=== PATIENT | male | born 1965 | race Caucasian/White ===

== ENCOUNTER 2023-07-21 10:22 | Outpatient (OUT) | payer BC, SELFPAY ==
[2023-07-21 10:52] LABS: Basophils Percent Auto 0.6 % (0.2-2.0); Eosinophils Absolute Auto 0.1 10^3/uL (0.0-0.7); Eosinophils Percent Auto 1.2 % (0.9-7.0); Hematocrit 47.2 % (42.0-54.0); Hemoglobin 16.2 g/dL (14.0-18.0); Immature Granulocytes Abs Auto 0.02 10^3/uL (0.00-0.03); Immature Granulocytes Pct Auto 0.3 % (0.0-0.5); Lymphocytes Absolute Auto 2.2 10^3/uL (1.2-3.8); Lymphocytes Percent Auto 30.9 % (20.5-60.0); Mean Corpuscular HGB Conc 34.3 g/dL (29.9-35.2); Mean Corpuscular Hemoglobin 30.5 pg (25.9-34.0); Mean Corpuscular Volume 88.9 fL (80.0-94.0); Mean Platelet Volume 10.5 fL (9.5-13.5); Monocytes Absolute Auto 0.5 10^3/uL (0.3-0.8); Monocytes Percent Auto 6.8 % (1.7-12.0); Neutrophils Absolute Auto 4.3 10^3/uL (1.4-6.5); Neutrophils Percent Auto 60.2 % (43.0-75.0); Platelet Count 175 10^3/uL (150-450); Red Blood Count 5.31 10^6/uL (4.70-6.10); Red Cell Distribution Width 11.9 % (11.0-15.0); White Blood Count 7.2 10^3/uL (4.0-11.0)
[2023-07-21 11:23] LABS: Alanine Aminotransferase 51 U/L (16-63); Albumin Globulin Ratio 1.2; Alkaline Phosphatase 72 U/L (46-116); Anion Gap 8.6; Aspartate Amino Transferase 30 U/L (15-37); BUN Creatinine Ratio 12.5; Bilirubin Total 0.6 mg/dL (0.2-1.0); Calcium 9.4 mg/dL (8.5-10.1); Carbon Dioxide 31.6 mmol/L (21.0-32.0); Chloride 104 mmol/L (98-107); Chol HDL Ratio 4.2; Cholesterol 187 mg/dL (<=200); Estimated GFR (African America >60 (>=60); Estimated GFR (Non-African Ame >60 (>=60); Globulin 3.4 g/dL; Glucose 93 mg/dL (74-106); HDL Cholesterol 44 mg/dL (40-60); Potassium 4.2 mmol/L (3.5-5.1); Sodium 140 mmol/L (136-145); Total Protein 7.4 g/dL (6.4-8.2); Triglycerides 196 mg/dL (<=150); VLDL CHOLESTEROL 39.2 mg/dL
[2023-07-21 11:26] LABS: Estimated Average Glucose 105 mg/dL; Glycohemoglobin A1C 5.3 % (4.5-6.2)
[2023-07-22 04:07] LABS: PSA, Free 0.34 ng/mL; Prostate Specific Ag 0.8 ng/mL (0.0-4.0)
== END 2023-07-21 10:23 | disposition home or self-care (01) ==
LOC: LAB 10:26
PROVIDERS: PCP Family Medicine; Visit Provider Family Medicine
DX: Z00.00 Encounter for general adult medical examination without abnormal findings (principal); E78.5 Hyperlipidemia, unspecified; R73.9 Hyperglycemia, unspecified; Z12.5 Encounter for screening for malignant neoplasm of prostate
CPT/HCPCS: 36415; 80053; 80061; 83036; 84153; 84154; 84436; 84443; 84481; 85025

== ENCOUNTER 2024-08-26 16:09 | Outpatient (OUT) | payer BC, SELFPAY ==
--- OUTSIDE RECORDS SUMMARY | 2024-08-26 16:15 | XMS_ITS | CCD ---
Author Organization [facility] Care Team Providers Care Toxicologist Name Role Phone DR JEFFY HAMILTON Admitting Unavailable DR JEFFY HAMILTON Attending Unavailable DR JEFFY HAMILTON Primary Care Unavailable DR JEFFY HAMILTON Consulting Unavailable Jeffy Hamilton Primary Care Physician Steve CRISTINA Attending Unavailable Steve CRISTINA Attending Unavailable Jeffy Hamilton Referring Unavailable Allergies Allergy Classification Reported Allergen(s) Allergy Type Date of Onset Reaction(s) Facility (1 source) No Known Medication Allergies; Translations: [No Known Medication Allergies] Propensity to adverse reactions (disorder) [facility] Repository Medications Current Medications Medication Drug Class(es) Dates Sig (Normalized) Sig (Original) fluticasone propionate 0.05 mg/actuat metered dose nasal spray (1 source) Corticosteroid Start: 12-13-2023 take 1 spray(s) nasal route once daily Fluticasone Propionate Active 1 SPRAY INTRANASAL Daily December 13, 2023 12:00am administer into each nostril Problems Problem Classification Problem Date Documented Date Episodic/Chronic Disorders of lipid metabolism (1 source) Hypertriglyceridemia 08-19-2023 Chronic Fever of unknown origin (1 source) Fever, unspecified; Translations: [Fever, unspecified] 12-13-2023 Episodic Other male genital disorders (1 source) Disorder of prostate; Translations: [Other specified disorders of prostate] Onset: 4 Episodic Other male genital disorders (1 source) Asymmetry of prostate 08-24-2023 Episodic Other screening for suspected conditions (not mental disorders or infectious disease) (2 sources) Encounter for screening for malignant neoplasm of prostate; Translations: [Screening for malignant neoplasm done] Onset: 2 Episodic Other upper respiratory infections (3 sources) Viral upper respiratory tract infection; Translations: [Acute upper respiratory infection, unspecified] 12-13-2023 Episodic Unclassified (1 source) Patient encounter status 08-24-2023 Results Test Name Value Interpretation Reference Range Facility No Panel InformationOrdered By: Ev Portillo on 12-13-2023 COVID Antigen (POC) [facility] Quick Strep (POC) [facility] Physician Referralon 024 Physician Referral [phone] [id number] #[id number] Normal [facility] Ambulatory Visit Summaryon 0 08-24-2023 Ambulatory Visit Summary ONESIMO COLEMAN :1965 Visit Date:08/24/2023 Ambulatory Visit Instructions Your Diagnosis Prostate asymmetry Prostate cancer screening Your Care Team Attending Physician - JONNIE FLORES, Steve Clark Primary Care Physician - Alfonso FLORES, Jeffy Referring Physician - Jeffy Hamilton MD Procedures Performed Colonoscopy, Excision of lesion of ear, Tonsillectomy. Discharge Vitals Heart Rate (Peripheral) 62 Blood Pressure 135/84 Height 173 cm Height 68 in Weight 79.5 kg Weight 174.9 lb BMI 26.56 What to do next You Need to Schedule the Following Appointments Follow Up with JONNIE FLORES, Steve Clark, URL When: Comments: 1 yr w/ PSA, SYLVAIN Where: [facility] [address], [place] [phone] Allergies No Known Medication Allergies Problems Ongoing - Any problem that you are currently receiving treatment for. Hypertriglyceridemia Prostate asymmetry Prostate cancer screening Patient Survey You may receive a survey via text or e-mail asking about your office visit. Please share your experience with us by completing your survey. We appreciate your feedback and thank you for choosing us for your care. Education Materials Prostate Cancer Screening Prostate cancer screening is testing that is done to check for the presence of prostate cancer in men. The prostate gland is a walnut-sized gland that is located below the bladder and in front of the rectum in males. The function of the prostate is to add fluid to semen during ejaculation. Prostate cancer is one of the most common types of cancer in men. Who should have prostate cancer screening? Screening recommendations vary based on age and other risk factors, as well as between the professional organizations who make the recommendations. In general, screening is recommended if: ? You are age 50 to 70 and have an average risk for prostate cancer. You should talk with your health care provider about your need for screening and how often screening should be done. Because most prostate cancers are slow growing and will not cause , screening in this age group is generally reserved for men who have a 10- to 15-year life expectancy. ? You are younger than age 50, and you have these risk factors: ? Having a father, brother, or uncle who has been diagnosed with prostate cancer. The risk is higher if your family member's cancer occurred at an early age or if you have multiple family members with prostate cancer at an early age. ? Being a male who is Black or is of Bhargav or sub-Saharan descent. In general, screening is not recommended if: ? You are younger than age 40. ? You are between the ages of 40 and 49 and you have no risk factors. ? You are 70 years of age or older. At this age, the risks that screening can cause are greater than the benefits that it may provide. If you are at high risk for prostate cancer, your health care provider may recommend that you have screenings more often or that you start screening at a younger age. How is screening for prostate cancer done? The recommended prostate cancer screening test is a blood test called the prostate-specific antigen (PSA) test. PSA is a protein that is made in the prostate. As you age, your prostate naturally produces more PSA. Abnormally high PSA levels may be caused by: ? Prostate cancer. ? An enlarged prostate that is not caused by cancer (benign prostatic hyperplasia, or BPH). This condition is very common in older men. ? A prostate gland infection (prostatitis) or urinary tract infection. ? Certain medicines such as male hormones (like testosterone) or other medicines that raise testosterone levels. A rectal exam may be done as part of prostate cancer screening to help provide information about the size of your prostate gland. When a rectal exam is performed, it should be done after the PSA level is drawn to avoid any effect on the results. Depending on the PSA results, you may need more tests, such as: ? A physical exam to check the size of your prostate gland, if not done as part of screening. ? Blood and imaging tests. ? A procedure to remove tissue samples from your prostate gland for testing (biopsy). This is the only way to know for certain if you have prostate cancer. What are the benefits of prostate cancer screening? ? Screening can help to identify cancer at an early stage, before symptoms start and when the cancer can be treated more easily. ? There is a small chance that screening may lower your risk of dying from prostate cancer. The chance is small because prostate cancer is a slow-growing cancer, and most men with prostate cancer from a different cause. What are the risks of prostate cancer screening? The main risk of prostate cancer screening is diagnosing and treating prostate cancer that would never have caused any symptoms or proble (more content not included)... Normal [facility] Patient Educationon 08-24-19 Patient Education Oncology Prostate Cancer Screening Prostate cancer screening is testing that is done to check for the presence of prostate cancer in men. The prostate gland is a walnut-sized gland that is located below the bladder and in front of the rectum in males. The function of the prostate is to add fluid to semen during ejaculation. Prostate cancer is one of the most common types of cancer in men. Who should have prostate cancer screening? Screening recommendations vary based on age and other risk factors, as well as between the professional organizations who make the recommendations. In general, screening is recommended if: ? You are age 50 to 70 and have an average risk for prostate cancer. You should talk with your health care provider about your need for screening and how often screening should be done. Because most prostate cancers are slow growing and will not cause , screening in this age group is generally reserved for men who have a 10- to 15-year life expectancy. ? You are younger than age 50, and you have these risk factors: ? Having a father, brother, or uncle who has been diagnosed with prostate cancer. The risk is higher if your family member's cancer occurred at an early age or if you have multiple family members with prostate cancer at an early age. ? Being a male who is Black or is of Bhargav or sub-Saharan descent. In general, screening is not recommended if: ? You are younger than age 40. ? You are between the ages of 40 and 49 and you have no risk factors. ? You are 70 years of age or older. At this age, the risks that screening can cause are greater than the benefits that it may provide. If you are at high risk for prostate cancer, your health care provider may recommend that you have screenings more often or that you start screening at a younger age. How is screening for prostate cancer done? The recommended prostate cancer screening test is a blood test called the prostate-specific antigen (PSA) test. PSA is a protein that is made in the prostate. As you age, your prostate naturally produces more PSA. Abnormally high PSA levels may be caused by: ? Prostate cancer. ? An enlarged prostate that is not caused by cancer (benign prostatic hyperplasia, or BPH). This condition is very common in older men. ? A prostate gland infection (prostatitis) or urinary tract infection. ? Certain medicines such as male hormones (like testosterone) or other medicines that raise testosterone levels. A rectal exam may be done as part of prostate cancer screening to help provide information about the size of your prostate gland. When a rectal exam is performed, it should be done after the PSA level is drawn to avoid any effect on the results. Depending on the PSA results, you may need more tests, such as: ? A physical exam to check the size of your prostate gland, if not done as part of screening. ? Blood and imaging tests. ? A procedure to remove tissue samples from your prostate gland for testing (biopsy). This is the only way to know for certain if you have prostate cancer. What are the benefits of prostate cancer screening? ? Screening can help to identify cancer at an early stage, before symptoms start and when the cancer can be treated more easily. ? There is a small chance that screening may lower your risk of dying from prostate cancer. The chance is small because prostate cancer is a slow-growing cancer, and most men with prostate cancer from a different cause. What are the risks of prostate cancer screening? The main risk of prostate cancer screening is diagnosing and treating prostate cancer that would never have caused any symptoms or problems. This is called overdiagnosisand overtreatment. PSA screening cannot tell you if your PSA is high due to cancer or a different cause. A prostate biopsy is the only procedure to diagnose prostate cancer. Even the results of a biopsy may not tell you if your cancer needs to be treated. Slow-growing prostate cancer may not need any treatment other than monitoring, so diagnosing and treating it may cause unnecessary stress or other side effects. Questions to ask your health care provider ? When should I start prostate cancer screening? ? What is my risk for prostate cancer? ? How often do I need screening? ? What type of screening tests do I need? ? How do I get my test results? ? What do my results mean? ? Do I need treatment? Where to find more information ? [employer] [place] [employer]: www.cancer.org ? [employer]: www.auanet.org Contact a health care provider if: ? You have difficulty urinating. ? You have pain when you urinate or ejaculate. ? You have blood in your urine or semen. ? You have pain in your back or in the area of your prostate. Summary ? Prostate cancer is a common type of cancer in men. The prostate gland is located below the bladder and in front of the rectum. This gland adds flu (more content not included)... Normal [facility] LIPID PROFILEon 12-11-2021 CHOL-HDL RATIO NORM SEE BELOW Normal [facility] Comment on above: Result Comment: 3.3 - 4.4 LOW RISK 4.4 - 7.1 AVERAGE RISK 7.1 - 11.0 MODERATE RISK >11.0 HIGH RISK Performed By: #### L IPID #### [facility] [address] [address] [address] Ruthann Evans Cholesterol [Mass/Vol] 181 mg/dL Normal <=200 Th [facility] Comment on above: Performed By: #### L IPID #### [facility] [address] [address] [address] Ruthann Evans Cholesterol in HDL [Mass/Vol] 33 mg/dL Critically low 40-60 [facility] Comment on above: Performed By: #### L IPID #### [facility] [address] [address] [address] Ruthann Evans Cholesterol in LDL [Mass/Vol] 93.2 mg/dL Normal [facility] Comment on above: Performed By: #### L IPID #### [facility] [address] [address] [address] Ruthann Evans Cholesterol.total/Nellie sterol in HDL [Mass ratio] 5.5 {ratio} Normal [facility] Comment on above: Performed By: #### L IPID #### [facility] [address] [address] [address] Ruthann Evans HDL NORMAL > or = 60 mg/dl - LOW CARDIOVASCULAR RISK <40 mg/dl - HIGH CARDIOVASCULAR RISK Normal [facility] Comment on above: Performed By: #### L IPID #### [facility] [address] [address] [address] Ruthann Evans LDL CALC NORMAL SEE BELOW Normal [facility] Comment on above: Result Comment: <100 mg/dl OPTIMAL 100 - 129 mg/dl NEAR OR ABOVE OPTIMAL 130 - 159 mg/dl BORDERLINE HIGH 160 - 189 mg/dl HIGH >190 mg/dl VERY HIGH Performed By: #### L IPID #### [facility] [address] [address] [address] Ruthann Evans Triglyceride [Mass/Vol] 274 mg/dL Critically high <=150 [facility] Comment on above: Performed By: #### L IPID #### [facility] [address] [address] [address] Ruthann Evans VLDL CALC 54.8 mg/dL Normal [facility] Comment on above: Performed By: #### L IPID #### [facility] [address] [address] [address] Rutahnn Evans Vital Signs Date Time Vital Sign Value Performing Clinician Faci lity 12-13-2023 11:49-0400 Body height 172.[address] [facility] 12-13-2023 11:49-0400 Body mass index (BMI) [Ratio] 26.9 kg/m2 [facility] 12-13-2023 11:49-0400 Body temperature 97.7 [degF] [facility] 12-13-2023 11:49-0400 Body weight 80.[address] [facility] 12-13-2023 11:49-0400 Diastolic blood pressure 76 mm[Hg] [facility] 12-13-2023 11:49-0400 Heart rate 65 /min [facility] 12-13-2023 11:49-0400 Respiratory rate 16 /min [facility] 12-13-2023 11:49-0400 SaO2% (BldA) [Mass fraction] 98 % [facility] 12-13-2023 11:49-0400 Systolic blood pressure 140 mm[Hg] [facility] 08-24-2023 09:52-0400 Blood Pressure Location Steve Zapata [facility] 08-24-2023 09:52-0400 Diastolic blood pressure 84 mm[Hg] Steve CRISTINA [facility] 08-24-2023 09:52-0400 Heart rate 62 /min Steve CRISTINA [facility] 08-24-2023 09:52-0400 Systolic blood pressure 135 mm[Hg] Steve CRISTINA [facility] Encounters Encounter Date Encounter Type Care Provider Facility Start: 08-29-2024 ambulatory Steve CRISTINA Facili ty:[facility] [place] Start: 12-13-2023 End: 12-13-2023 ambulatory [facility] Work Phone: Start: 12-13-2023 End: 12-13-2023 Patient encounter procedure [facility] Work Phone: Start: 08-24-2023 End: 08-25-2023 ambulatory Steve CRISTINA Facility:[facility] [place] Start: 08-24-2023 End: 08-24-2023 Patient encounter procedure Steve CRISTINA [facility] Start: 08-06-2023 ambulatory Steve CRISTINA Facility :[facility] Start: 07-21-2023 ambulatory Steve CRISTINA Facility :[facility] Start: 12-15-2021 Encounter for genera l adult medical examination without abnormal findings DR JEFFY HAMILTON [facility] Start: 12-11-2021 End: 12-12-[address] JEFFY HAMILTON Facility:[facility] Start: 12-11-2021 End: 12-12-2021 Encounter for general adult medical examination without abnormal findings DR JEFFY HAMILTON Facility:[facility] Procedures Date Procedure Procedure Detail Performing Clinician Start: 12-13-2023 COVID Antigen (POC) Start: 12-13-2023 Quick Strep (POC) Start: 12-11-[address] SANTO HAMILTON Comment on above: Performed By: #### P [facility] #### [facility] [address] [address] [address] Ruthann Mcginnis Steve CRISTINA Excision of lesion of ear Pa brenda CRISTINA Tonsillectomy Steve CRISTNIA Payers Date Payer Category Payer Unknown [id number] 1965 Unknown [id number] 1965 Unknown [id number] 1965 Unknown [id number] 1957 Unknown [id number] Social History Date Type Detail Facility Start: 08-24-2023 End: 12-13-2023 Tobacco smoking status Never smoked tobacco (finding) [facility] Tobacco smoking status Never [facility] Sex Assigned At Male [facility] Start: 1965 Sex Assigned At Male F [facility] Functional Status Date Assessment Result Facility 08-24-2023 Functional Status N/A [facility] Clinical Note 08-24-2023 Note Date & Type Note Facility 08-24-2023 Note Chief Complaint Referral *Prostate Nodule HPI Staff New pt referred by Dr. Jeffy Hamilton for prostate nodule. Never seen in our office before (verified on DA). PSA 12/11/21 - 0.88 PSA 07/21/23 - 0.8 & 42.5% Pt denies family Hx of Prostate Cancer. Denies pain/burning and visible blood in urine. Occasionally 1x/night to void. Denies frequency during the day. Denies complaints with urinary stream. Feels empty after voiding. Denies all urinary complaints at this time. States Dr Hamilton told him 1 side of prostate is larger than the other. History of Present Illness Tests reviewed: reviewed UA, referral records, PSAs I have reviewed the previous health record information and history for this patient from external providers. I have reviewed and verified the staff HPI to be accurate for this encounter. Review of Systems PHQ Score Initial Depression Screen Score: 0 SCORE ROS - Provider Constitutional: denies weight loss, denies hot flashes. Eyes: denies eye problems. Gastrointestinal: denies nausea, denies vomiting. Cardiovascular: denies chest pain or angina. Integumentary: no dryness Musculoskeletal: denies musculoskeletal symptoms. ENMT: denies otolaryngeal symptoms. Respiratory: no shortness of breath. Heme/Lymph: denies easy bleeding tendency, denies easy bruising tendency. Psychiatric: no confusion, no anxiety. Genitourinary: See HPI. Physical Exam Vitals & Measurements HR: 62(Peripheral) BP: 135/84 HT: 68 in HT: 173 cm WT: 79.5 kg WT: 174.9 lb BMI: 26.56 General Appearance: alert, no distress, well nourished, well developed male. Head: normocephalic . Eyes: normal orbit and globe. ENMT: normal examination of external ears. Chest: Lungs CTA, respirations non labored. Cardiovascular: regular rate and rhythm. Abdomen: soft, non distended, no tenderness, no mass or organomegaly, no hernia. Genitourinary: normal scrotum, normal testes, normal urethra, normal epididymis, normal vas deferens/spermatic cord. Flank Pain: none. Bladder: nonpalpable. Penis: normal shaft, normal glans. Prostate: abnormal prostate R larger than L, estimated weight 45 gms, no hard nodule observed. Lymph Nodes: unremarkable palpation of the cervical area. Skin: warm, dry, no bruising. Psychiatric: cooperative, affect appropriate for age, normal judgement, euthymic mood. Assessment/Plan Onesimo is a 58 yo male new pt referred by Dr. Jeffy Hamilton for abnormal SYLVAIN. 1. Prostate asymmetry (N42.89: Other specified disorders of prostate) Per Dr. Hamilton's PE 07/21/23, pt had R-sided prostate swelling. SYLVAIN today: 45g, no hard nodule, R side larger than L. Discussed asymmetry per SYLVAIN is not suspicious for prostate cancer. If induration were to be found, this would be more concerning for malignancy. Discussed possible prostate MRI and bx to further evaluate for prostate cancer. Given SYLVAIN today along with age appropriate psa level, no further intervention is warranted at this time. will follow psa and sylvain to see if any changes develop over time. -SYLVAIN in 1 year 2. Prostate cancer screening (Z12.5: Encounter for screening for malignant neoplasm of prostate) PSA 12/11/21 - 0.88 07/21/23 - 0.8 & 42.5% Discussed PSA level is wnl. Will continue to monitor level. -PSA in 1 year Follow-up With When Contact Information JONNIE FLORES, Steve Clark, URL [facility] [address], [place] [phone] Additional Instructions: 1 yr w/ PSA, SYLVAIN Patient Education Prostate Cancer Screening IAnayeli, personally scribed for Dr. Cristina on 08/24/2023 10:53:23. . Documentation recorded by the scribe, Anayeli Silva, accurately reflects the services(s) I performed and decisions made by me. Authenticated by Dr. Cristina on 08/24/2023 10:57:45. Problem List/Past Medical History Ongoing Hypertriglyceridemia Prostate asymmetry Prostate cancer screening Historical No qualifying data Procedure/Surgical History Colonoscopy, Excision of lesion of ear, Tonsillectomy. Medications No active medications Allergies No Known Medication Allergies Social History Alcohol - Denies Alcohol Use, 01/04/2019 Substance Abuse - Denies Substance Abuse, 01/04/2019 Tobacco Never (less than 100 in lifetime) Tobacco Use:. Never Smokeless Tobacco Use:. Household tobacco concerns: No. Yes, 08/24/2023 Family History Cancer of esophagus: Mother. Hypertension: Father. Primary malignant neoplasm of prostate: Negative: Mother, Father, Sister and Brother. Lab Results Ambulatory Point of Care Results Bilirubin Urine Dipstick: Negative (08/24/23 10:16:00) Blood Urine Dipstick: Negative (08/24/23 10:16:00) Glucose Urine Dipstick: Negative (08/24/23 10:16:00) Ketones Urine Dipstick: Negative (08/24/23 10:16:00) Leukocytes Urine Dipstick: Negative (08/24/23 10:16:00) Nitrite Urine Dipstick: Negative (08/24/23 10:16:00) Protein Urine Dipstick: Nega (more content not included)... [facility] Comment on above: Result Comment: Elec tronically Signed By: Steve CRISTINA MD\.br\Date and Time Signed: 08/24/23 10:57 EDT\.br\Electronically Co-Signed By: Anayeli Silva\.br\Date and Time Co-Signed: 08/24/23 10:54 EDT Hospital Discharge instructions 08-24-2023 Note Date & Type Note Facility 08-24-2023 Hospital Discharge instructions Patient Education 08/24/2023 10:53:08 Prostate Cancer Screening Prostate Cancer Screening Prostate cancer screening is testing that is done to check for the presence of prostate cancer in men. The prostate gland is a walnut-sized gland that is located below the bladder and in front of the rectum in males. The function of the prostate is to add fluid to semen during ejaculation. Prostate cancer is one of the most common types of cancer in men. Who should have prostate cancer screening? Screening recommendations vary based on age and other risk factors, as well as between the professional organizations who make the recommendations. In general, screening is recommended if: You are age 50 to 70 and have an average risk for prostate cancer. You should talk with your health care provider about your need for screening and how often screening should be done. Because most prostate cancers are slow growing and will not cause , screening in this age group is generally reserved for men who have a 10- to 15-year life expectancy. You are younger than age 50, and you have these risk factors: ?Having a father, brother, or uncle who has been diagnosed with prostate cancer. The risk is higher if your family member's cancer occurred at an early age or if you have multiple family members with prostate cancer at an early age. ?Being a male who is Black or is of Bhargav or sub-Saharan descent. In general, screening is not recommended if: You are younger than age 40. You are between the ages of 40 and 49 and you have no risk factors. You are 70 years of age or older. At this age, the risks that screening can cause are greater than the benefits that it may provide. If you are at high risk for prostate cancer, your health care provider may recommend that you have screenings more often or that you start screening at a younger age. How is screening for prostate cancer done? The recommended prostate cancer screening test is a blood test called the prostate-specific antigen (PSA) test. PSA is a protein that is made in the prostate. As you age, your prostate naturally produces more PSA. Abnormally high PSA levels may be caused by: Prostate cancer. An enlarged prostate that is not caused by cancer (benign prostatic hyperplasia, or BPH). This condition is very common in older men. A prostate gland infection (prostatitis) or urinary tract infection. Certain medicines such as male hormones (like testosterone) or other medicines that raise testosterone levels. A rectal exam may be done as part of prostate cancer screening to help provide information about the size of your prostate gland. When a rectal exam is performed, it should be done after the PSA level is drawn to avoid any effect on the results. Depending on the PSA results, you may need more tests, such as: A physical exam to check the size of your prostate gland, if not done as part of screening. Blood and imaging tests. A procedure to remove tissue samples from your prostate gland for testing (biopsy). This is the only way to know for certain if you have prostate cancer. What are the benefits of prostate cancer screening? Screening can help to identify cancer at an early stage, before symptoms start and when the cancer can be treated more easily. There is a small chance that screening may lower your risk of dying from prostate cancer. The chance is small because prostate cancer is a slow-growing cancer, and most men with prostate cancer from a different cause. What are the risks of prostate cancer screening? The main risk of prostate cancer screening is diagnosing and treating prostate cancer that would never have caused any symptoms or problems. This is called overdiagnosisand overtreatment. PSA screening cannot tell you if your PSA is high due to cancer or a different cause. A prostate biopsy is the only procedure to diagnose prostate cancer. Even the results of a biopsy may not tell you if your cancer needs to be treated. Slow-growing prostate cancer may not need any treatment other than monitoring, so diagnosing and treating it may cause unnecessary stress or other side effects. Questions to ask your health care provider When should I start prostate cancer screening? What is my risk for prostate cancer? How often do I need screening? What type of screening tests do I need? How do I get my test results? What do my results mean? Do I need treatment? Where to find more information The [place]: www.cancer.org [employer]: www.auanet.org Contact a health care provider if: You have difficulty urinating. You have pain when you urinate or ejaculate. You have blood in your urine or semen. You have pain in your back or in the area of your prostate. Summary Prostate cancer is a common type of cancer in men. The prostate gland is located below the bladder and in front of the rectum. This gland adds fluid to semen during ejaculation. Prostate cancer screening may identify cancer at an early stage, when the cancer can be treated more easily and is less likely to have spread to other areas of the body. The prostate-specific antigen (PSA) test is the recommended screening test for prostate cancer, but it has associated risks. Discuss the risks and benefits of prostate cancer screening with your health care provider. If you are age 70 or older, the risks that screening can cause are greater than the benefits that it may provide. This information is not intended to replace advice given to you by your health care provider. Make sure you discuss any questions you have with your health care provider. Document Revised: 10/21/2021 Document Reviewed: 10/21/2021 [employer] Patient Education 2022 [employer]. Follow Up Care 07/30/2023 15:42:42 With:Steve CRISTINA MD, URL Address: [facility] [address], [place] [phone]- [phone] When: Unknown Comments:1 yr w/ PSA, SYLVAIN [facility] Evaluation + Plan note Note Date & Type Note Facility Evaluation + Plan note Future Appointments Appointment Date:08/29/2024 08:45:00 AM Scheduled Provider:Steve CRISTINA MD Location:[facility] Appointment Type:URO Office Visit Diagnostic Tests PendingPSA Total 08/24/23 [facility] Evaluation note Note Date & Type Note Facility Evaluation note Diagnosis Onset Date Viral URI acute Fever noneactive Sore throat noneactive [facility] Work Phone: Hospital course Narrative Note Date & Type Note Facility Hospital course Narrative No data available for this section [facility] Progress note Note Date & Type Note Facility Progress note No data available for this section [facility] Summary Purpose Family History Relationship Condition Age at Onset Recorded Date/T griffin father Malignant neoplasm Unknown mother Malignant neoplasm Unknown Advance Directives Advance Directive Response Recorded Date/ Time Advance Directives No December 12 11:45am Chief Complaint and Reason for Visit Chief Complaint cough, congestion Reason for Visit Viral URI Fever Sore throat Additional Source Comments (unrecognized sect ion and content) No Status Records FoundNo Status Records Found INFORMATION SOURCE (unrecogn ized section and content) DATE CREATED AUTHOR 12/15/2021 [facility] DATE CREATED AUTHOR AUTHOR'S ORGANIZ ATION 08/25/2023 [facility] Patient Care team informatio n (unrecognized section and content) Team Status: Active Member Role Status Dates Jeffy Hamilton MD Primary Care Provider Active Team Status: Inactive Member Role Status Dates Ev Nath APRN Attending Provider Active S tart: December 13, 2023 End: December 13, 2023 Jeffy Hamilton MD Primary Care Provider Active Start: December 13, 2023 End: December 13, 2023 Goals (unrecognized section and content) Goals may be documented in a n alternate section FOR RECORDS PERTAINING TO PATIENTS WHO ARE OR HAVE BEEN ENROLLED IN A CHEMICAL DEPENDENCY/SUBSTANCEABUSE PROGRAM, SOME INFORMATION MAY BE OMITTED. This clinical summary was aggregated from multiple sources. Caution should be exercised in using it in the provision of clinical care. This summary normalizes information from multiple sources, and as a consequence, information in this document may materially change the coding, format and clinical context of patient data. In addition, data may be omitted in some cases. CLINICAL DECISIONS SHOULD BE BASED ON THE PRIMARY CLINICAL RECORDS. [facility] [employer] [facility]. provides no warranty or guarantee of the accuracy or completeness of information in this document.
[2024-08-26 18:08] LABS: Prostate Specific Antigen Scrn 0.92 ng/mL (<=4.00)
== END 2024-08-26 16:10 | disposition home or self-care (01) ==
PROVIDERS: PCP Family Medicine; Visit Provider Urology
DX: Z12.5 Encounter for screening for malignant neoplasm of prostate (principal)
CPT/HCPCS: 36415; G0103

== ENCOUNTER 2024-11-30 11:15 | Outpatient (OUT) | payer BC, SELFPAY ==
--- OUTSIDE RECORDS SUMMARY | 2023-07-22 08:41 | XMS_ITS ---
Author Organization [facility] in [place] Address [address] [place] [address] Care Team Providers Care Seat Builder Name Role Phone CLAUDIA TURNER MD Primary Care Provider JEFFY TURNER Unavailable [phone] REASON FOR VISIT lab results Encounters Encounter Location Date Provider Diagnosis [facility] [place] [address] 07/22/2023 JEFFY TURNER Plan Of Treatment No Information Progress Notes * Shaheen COLEMAN LDOB: [birth year] (58 yo M)Acc No.[id number]:07/22/2023 Patient: Shaheen Kamara Rafy :1965 A ge:58 Y S ex:Male Address:[address] [place] [address] , [place] [address] * true * Date: Generated for Eugenia ashton/Pat/eTransmitting on: 0 11/30/2024 11:19 AM EDT
--- OUTSIDE RECORDS SUMMARY | 2023-11-27 06:38 | XMS_ITS ---
Author Organization [facility] in [place] Address [address] [place] [address] Care Team Providers Care Director Operations Broadcast Name Role Phone CLAUDIA HAMILTON MD Primary Care Provider Claudia Hamilton Unavailable [phone] REASON FOR VISIT prednisone- Medications Medication SIG (Take, Route, Fr equency, Duration) Notes Start Date End Date Status predniSONE 20 MG 1 tablet Orally Once a day - PRN for 30 days 07/21/2023 Active Encounters Encounter Location Date Provider Diagnosis [facility] [address] [place] [address] 11/27/2023 Claudia Hamilton Encntr for general adult medical exam w/o abnormal findings Z00.00 Assessments Encounter Date Diagnosis (ICD Code) Assessment Notes Treatment Notes Treatment Clinical Notes Section Notes 11/27/2023 Encntr for general adult medical exam w/o abnormal findings (ICD-10 - Z00.00) Plan Of Treatment Medication Medication Name Sig Start Date Stop Date Notes predniSONE 20 MG 1 tablet Orally Once a day - PRN for 30 days 07/21/2023 Progress Notes * Shaheen COLEMAN LDOB: [birth year] (58 yo M)Acc No.[id number]:11/27/2023 Patient: Shaheen PENA :1965 A ge:58 Y S ex:Male Address:[address] [place] [address] , [place] [address] * Refills Refill predniSONE Tablet, 20 MG, Orally, 20, 1 tablet, Once a day - PRN, 30 days, Refills=11 * true * Date: Generated for Eugenia ashton/Pat/Shannonitting on: 0 11/30/2024 11:19 AM EDT
--- OUTSIDE RECORDS SUMMARY | 2024-11-30 06:15 | XMS_ITS ---
Author Organization [facility] in [place] Address [address] [place] [address] Care Team Providers Care Single Fold Machine Operator Name Role Phone CLAUDIA HAMILTON MD Primary Care Provider Claudia Hamilton Unavailable [phone] Allergies No Known Allergies REASON FOR VISIT Wellness appointment, Hit right bond, hasn't healed up- about 2 weeks now Medications Medication SIG (Take, Route, Fr equency, Duration) Notes Start Date End Date Status Cephalexin 500 MG 2 tabs Orally bid for 10 days Active Social History Tobacco Use: Social History Observation Description Date Details (start date - stop date) Never Smoker NA - NA Tobacco Use/Smoking Question Answer Notes Patient is a nonsmoker Problems Problem Type SNOMED Code ICD Code Onset Dates Problem Status W/U Status Risk Notes Problem Cellulitis (553884876) Cellulitis (L03.90) Active confirmed Problem Well adult (900380477) Well adult (Z00.00) Active confirmed Vital Signs Weight 178.8 lbs 11/30/2024 Height 68 in 11/30/2024 Blood pressure systolic 144 mm Hg 12/01/19 25 Blood pressure diastolic 98 mm Hg 025 BMI 27.18 kg/m2 11/30/2024 Encounters Encounter Location Date Provider Diagnosis [facility] [address] [place] [address] 11/30/2024 Claudia Hamilton Cellulitis L03.90 an d Well adult Z00.00 Assessments Encounter Date Diagnosis (ICD Code) Assessment Notes Treatment Notes Treatment Clinical Notes Section Notes 11/30/2024 Cellulitis (ICD-10 - L03.90) 11/30/2024 Well adult (ICD-10 - Z00.00) Plan Of Treatment Medication Medication Name Sig Start Date Stop Date Notes Cephalexin 500 MG 2 tabs Orally bid for 10 days 11/30/2024 Pending Test Test Name Order Date HEMOGLOBIN A1C (GLYCO) 11/30/2024 LIPID PANEL (CHOL/TRIG/HDL/LDL) 12/01/19 25 STOOL OCCULT BLOOD 11/30/2024 THYROID PANEL (T4/TSH/FREE T3) PSA, SCREENING 11/30/2024 CMP (COMP MET GREGORY) w/eGFR CKD-EPI 2024 CBC WITH DIFF 11/30/2024 Progress Notes * Shaheen COLEMAN LDOB: 8 (59 yo M)Acc No.[id number]:11/30/2024 UNLOCKED PROGRESS NOTE Progress Note Patient: Shaheen PENA Provider: Kavitha Hamilton ([facility])MD :1965 A ge:59 Y S ex:Male Date:11/30/2024 Address:[address] [place], [place] [id number] Pcp:CLAUDIA HAMILTON MD Check In:10:07 AM ESTCheck O ut:11:06 AM EST Subjective: * Chief Complaints: * 1 . Wellness appointment. 2. Hit right bond, hasn't healed up- about 2 weeks now. * HPI: D epression Screening: PHQ-2 (2015 Edition) L ittle interest or pleasure in doing things??Several days F eeling down, depressed, or hopeless? N ot at all T otal Score 1 R bond hit - 2 weeks - not helaitn g- using eroxide daily. * ROS: E ENT: hearing changes d enies. v isual changes d enies.?non-healing mouth sores d enies. s wollen glands or neck lumps d enies. h oarseness d enies. s ore throat d enies. d ifficulty swallowing d enies. n ose bleeds d enies. n emmy congestion d enies. e ar ache d enies. e ar discharge?denies. r inging in ears d enies. l ight sensitivity d enies. e ye pain d enies. b lurring d enies. e ye irritation d enies. d ouble vision d enies.?vision loss d enies. G eneral/Constitutional: Sweats: D enies. F atigue d enies. S leep problems d enies. A norexia d enies. M alaise d enies. W eight loss d enies.?Fatigue or Weakness d enies. F ever or Chills d enies. C ardiovascular: Shortness of Breath w/lying flat d enies. L ightheadedness/dizziness d enies. C hest tightness/ heavy pressure d enies. S welling of legs, ankles, or feet d enies. W aking up with shortness of breath d enies. C hest pain denies. P alpitations d enies. W eight gain d enies. R espiratory: Chronic or frequent cough d enies. C oughing up blood?denies. D ifficulty breathing d enies. P roductive cough d enies. S noring?denies. S hortness of breath that awakens from sleep (PND) d enies. C hest pain d enies. S putum production d enies. W heezing d enies. M usculoskeletal: Joint pain d enies. J oint Fluid d enies. B ack pain d enies. K nee pain d enies. N antione pain d enies. J oint Stiffness d enies. M uscle cramps d enies. W eakness of muscles d enies. A rthritis d enies. M uscle aches d enies. P ain in shoulder(s) d enies. S wollen joints d enies. * Medical History: M edical History Verified. * Surgical History: T onsils . * Hospitalization/Major Diagno stic Procedure: D enies Past Hospitalization. * Family History: F ather: , diagnosed with Unspecified essential hypertension. M other: , esophageal cancer. M aternal Grandmother: , diagnosed with Diabetes mellitus without mention of complication, type II or unspecified type, not stated as uncontrolled. * Social History: T obacco Use: T obacco Use/Smoking P atient is a n onsmoker * Medications: D iscontinued predniSONE 20 MG Tablet 1 tablet Orally Once a day - PRN , Medication List reviewed and reconciled with the patient * Allergies: N .K.D.A. Objective: * Vitals: W t:178.8lbs, Ht: 68 in, BP:144/98mm Hg, BMI:27.18Index, Ht-cm: 172.72 cm, Wt-k.1 kg. * Examination: P hysical Exam: GENERAL: w ell developed, well nourished, in no acute distress. HEAD: n ormocephalic/atraumatic. EYES: p upils equal, round and reactive to light, conjunctivae and sclerae normal. EARS: n o deformity or lesion of external ear, canals and TM appear normal bilaterally, TM's intact, not inflamed with normal light reflex, hearing grossly normal to conversational speech. NOSE: n o deformity, discharge, inflammation, or lesions.? MOUTH: m ucous membranes moist, normal oropharynx and posterior pharynx without lesions or exudates, tongue normal, dentition normal. NECK: n antione supple, no masses or palpable cervical nodes, trachea midline, thyroid without nodules, masses, tenderness, or enlargement. CHEST: n o chest wall deformity, no chest wall tenderness.? LUNGS: n ormal respiratory effort and clear to auscultation, no wheezes, rales, or rhonchi, good air exchange. CARDIO: r egular rate and rhythm, normal S1 and S2, nor murmur, rub, or gallop. PULSES: n ormal capillary refill. ABDOMEN: s oft, non-distended, non-tender, no masses. MUSCULOSKELETAL: n o deformity or scoliosis noted, normal range of motion, joints normal, no erythema, edema, effusion, or ecchymosis. EXTREMITY: n o clubbing, cyanosis, edema, or deformity with normal ROM in both upper and lower bilateral extremities. NEUROLOGIC: g rossly normal. SKIN: n o rashes, ulcerations, or suspicious lesions. LYMPH NODES: n o cervical adenopathy, nodes normal. MENTAL STATUS: a lert and oriented x3, normal mood and affect. Assessment: * Assessment: 1. C elkinulitis - L03.90 (Primary) [address] [facility] adult - Z00.00 Plan: * Treatment: 2. W [facility] adult L AB: HEMOGLOBIN A1C (GLYCO) L AB: LIPID PANEL (CHOL/TRIG/HDL/LDL) L AB: STOOL OCCULT BLOOD L AB: THYROID PANEL (T4/TSH/FREE T3) L AB: PSA, SCREENING L AB: CMP (COMP MET GREGORY) w/eGFR CKD-EPI L AB: CBC WITH DIFF * Preventive Medicine: Screenings/Counseling: B DE ACTION PLAN Above Normal BMI Follow-up D ietary management education, guidance, and counseling * * Electronic signature of Claudia Hamilton MD, [phone] on 11/30/2024 at 11:19 AM EDT Sign off status: Pending Visit Status: Phillip HK (Check Out) * Provider: Kavitha Hamilton ([facility])MD Date: 11/30/2024 Generated for Printi ng/Faxing/eTransmitting on: 11/30/2024 11:19 AM EDT History and Physical Notes * HPI (History of Present Illness) Category Sub-Category Detail Notes Category Not es Depression Screening PHQ-2 (2015 Edition) Little interest or pleasure in doing things?: Several days R bond hit - 2 weeks - not helaitn g- using eroxide daily Feeling down, depressed, or hopeless?: N ot at all Total Score: 1 Examination Category Sub-Category Detail Notes Category Not es Physical Exam GENERAL: well developed, well nourished, in no acute distress HEAD: normocephalic/atraum atic EYES: pupils equal, round and reactive to light, conjunctivae and sclerae normal EARS: no deformity or lesi on of external ear, canals and TM appear normal bilaterally, TM's intact, not inflamed with normal light reflex, hearing grossly normal to conversational speech NOSE: no deformity, discha rge, inflammation, or lesions MOUTH: mucous membranes [address], normal oropharynx and posterior pharynx without lesions or exudates, tongue normal, dentition normal NECK: neck supple, no mass es or palpable cervical nodes, trachea midline, thyroid without nodules, masses, tenderness, or enlargement CHEST: no chest wall deform ity, no chest wall tenderness LUNGS: normal respiratory e ffort and clear to auscultation, no wheezes, rales, or rhonchi, good air exchange CARDIO: regular rate and rhy thm, normal S1 and S2, nor murmur, rub, or gallop PULSES: normal capillary ref ill ABDOMEN: soft, non-distended, non-tender, no masses RECTAL: MUSCULOSKELETAL: no deformity or scol iosis noted, normal range of motion, joints normal, no erythema, edema, effusion, or ecchymosis EXTREMITY: no clubbing, cyanosi s, edema, or deformity with normal ROM in both upper and lower bilateral extremities NEUROLOGIC: grossly normal SKIN: no rashes, ulceratio ns, or suspicious lesions LYMPH NODES: no cervical adenopat hy, nodes normal MENTAL STATUS: alert and oriented x 3, normal mood and affect
--- OUTSIDE RECORDS SUMMARY | 2024-11-30 11:19 | XMS_ITS | Patient Health Record ---
Author Organization [facility] [place] Address [address] [place] [address] Care Team Providers Care Instrument Mechanics Supervisor Name Role Phone CLAUDIA HAMILTON MD Primary Care Provider [phone] Claudia Hamilton Unavailable [phone] Allergies No Known Allergies Results Component Value Reference Range Notes PSA SCREENING Reviewed date:08/27/2024 01:18:13 PM Interpretation: Performing Lab: Notes/Report: [facility] , Prostate Specific Antigen Scrn 0.92 <=4.00 ng/ mL Performing Lab: see note ML - [facility] Reason For Referral No Information Medications Medication SIG (Take, Route, Fr equency, Duration) Notes Start Date End Date Status Cephalexin 500 MG 2 tabs Orally bid for 10 days Active Social History Tobacco Use: Social History Observation Description Date Details (start date - stop date) Never Smoker NA - NA Tobacco Use/Smoking Question Answer Notes Patient is a nonsmoker Alcohol Screen (Audit-C) Question Answer Notes Did you have a drink containing alcohol in the p ast year? No Points 0 Interpretation Negative Problems Problem Type SNOMED Code ICD Code Onset Dates Problem Status W/U Status Risk Notes Problem Hypertriglyceridemia (120942015) Hypertriglyceridemia (E78.1) Active confirmed Problem Well adult (948894002) Well adult (Z00.00) Active confirmed Problem Cellulitis (076147325) Cellulitis (L03.90) Active confirmed Problem Prostate nodule (672998954432635) Prostate nodule (N40.2) Active confirmed Vital Signs Blood pressure diastolic 98 mm Hg 11/30/2024 Height 68 in 11/30/2024 Blood pressure systolic 144 mm Hg 11/30/2024 Weight 178.8 lbs 11/30/2024 BMI 27.18 kg/m2 11/30/2024 Encounters Encounter Location Date Provider Diagnosis [facility] [address] [place] [address] 11/30/2024 Claudia Hoy Cellulitis L03.90 an d Well adult Z00.00 Assessments Encounter Date Diagnosis (ICD Code) Assessment Notes Treatment Notes Treatment Clinical Notes Section Notes 11/30/2024 Cellulitis (ICD-10 - L03.90) 11/30/2024 Well adult (ICD-10 - Z00.00) Plan Of Treatment Pending Test Test Name Order Date CMP (COMPLETE METABOLIC PANEL) 4 HEMOGLOBIN A1C (GLYCO) 07/21/2023 HEMOGLOBIN A1C (GLYCO) 11/30/2024 LIPID PANEL (CHOL/TRIG/HDL/LDL) 12/01/19 25 LIPID PANEL (CHOL/TRIG/HDL/LDL) 07/21/19 24 CBC WITH DIFF 07/21/2023 PSA, TOTAL 07/21/2023 STOOL OCCULT BLOOD 11/30/2024 THYROID PANEL (T4/TSH/FREE T3) 5 THYROID PANEL (T4/TSH/FREE T3) 4 Free PSA 07/21/2023 PSA, SCREENING 11/30/2024 CMP (COMP MET GREGORY) w/eGFR CKD-EPI 2024 CBC WITH DIFF 11/30/2024 Insurance Providers Payer Name Payer Address Payer Phone Subscriber Number Group Number Insured Name Patient Relationship to Insured Coverage Start Date Coverage End Date [employer] PPO PLUS LOCAL PLAN [address] [place] [address] [id number] Shaheen Guzmán Self - patient is the insured Medical (General) History Surgical History Surgery Date(Month/Year) Tonsils
--- OUTSIDE RECORDS SUMMARY | 2024-11-30 11:34 | XMS_ITS | CCD ---
Author Organization [facility] Care Team Providers Care Sprayer Operator Name Role Phone DR JEFFY HAMILTON Admitting Unavailable DR JEFFY HAMILTON Attending Unavailable DR JEFFY HAMILTON Primary Care Unavailable DR JEFFY HAMILTON Consulting Unavailable Jeffy Hamilton Primary Care Physician Steve CRISTINA Attending Unavailable Steve CRISTINA Attending Unavailable Steve CRISTINA Attending Unavailable Allergies Allergy Classification Reported Allergen(s) Allergy Type Date of Onset Reaction(s) Facility (1 source) No Known Medication Allergies; Translations: [No Known Medication Allergies] Propensity to adverse reactions (disorder) [facility] Repository Medications Current Medications Medication Drug Class(es) [...] Test Name Value Interpretation Reference Range Facility Ambulatory Visit Summaryon 0 08-29-2024 Ambulatory Visit Summary Ambulatory Visit Summary ONESIMO COLEMAN :1965 Visit Date:08/29/2024 Ambulatory Visit Instructions Your Diagnosis Prostate cancer screening Prostate asymmetry BPH without urinary obstruction Family history of prostate cancer in father Your Care Team Attending Physician - Steve CRISTINA MD Primary Care Physician - Jeffy Hamilton MD Procedures Performed Colonoscopy, Excision of lesion of ear, Tonsillectomy. Discharge Vitals Temperature (Temporal Artery) 35.8 ???C Heart Rate (Peripheral) 82 Respiratory Rate 16 Blood Pressure 128/70 Height 173 cm Height 68 in Weight 82.9 kg Weight 182.763 lb BMI 27.7 What to do next You Need to Schedule the Following Appointments Follow Up with Steve CRISTINA MD, URL When: Where: [facility] [address] [place] [address]- [phone] Follow Up with Steve CRISTINA MD, URL When: Where: [facility] [address] [place] [address]- [phone] Allergies No Known Medication Allergies Problems Ongoing - Any problem that you are currently receiving treatment for. BPH without urinary obstruction Family history of prostate cancer in father Hypertriglyceridemia Prostate asymmetry Prostate cancer screening Patient [...] recommendations. In general, screening is recommended if: ??? You are age 50 to 70 and [...] have a 10- to 15-year life expectancy. ??? You are younger than age 50, and [...] In general, screening is not recommended if: ??? You are younger than age 40. ??? You are between the ages of 40 and 49 and you have no risk factors. ??? You are 70 years of age or [...] high PSA levels may be caused by: ??? Prostate cancer. ??? An enlarged prostate that is not caused by cancer (benign prostatic hyperplasia, or BPH). This condition is very common in older men. ??? A prostate gland infection (prostatitis) or urinary tract infection. ??? Certain medicines such as male hormones (like [...] you may need more tests, such as: ??? A physical exam to check the size of your prostate gland, if not done as part of screening. ??? Blood and imaging tests. ??? A procedure to remove tissue samples from your prostate gland for testing (biopsy). This is the only way to know for certain if you have prostate cancer. What are the benefits of prostate cancer screening? Screening can help to identify cancer at an early stage, before symptoms start and when the cancer can be treated more easily. ??? There is a small chance that screening may lower your risk of dyi (more content not included)... Normal Chriss [facility] Urology Office/Clinic Noteon 08-29-2024 Urology Office/Clinic Note Urology Office/Clinic Note Chief Complaint 1 year follow up wit PSA HPI Staff 59 yr old male her for 1 yr f/u w/ PSA previous dx: Prostate asymmetry PSA 12/11/21 - 0.88 07/21/23 - 0.8 & 42.5% Current PSA - 08/26/24 : 0.92 Denies any urological issues. IPSS: 2 History of Present Illness Tests reviewed: reviewed UA, PSA I have reviewed the previous health record information and history for this patient from Dr. Cristina. I have reviewed and verified the staff [...] See HPI. Physical Exam Vitals & Measurements T: 35.8 ???C(Temporal Artery) HR: 82(Peripheral) RR: 16 BP: 128/70 HT: 173 cm HT: 68 in WT: 82.9 kg WT: 182.763 lb BMI: 27.7 General Appearance: alert, no distress, well nourished, well developed male. Prostate: abnormal prostate R larger than L, estimated weight 45 gms, no hard nodule observed. Assessment/Plan 1. Prostate cancer screening (Z12.5: Encounter for screening for malignant neoplasm of prostate) PSA 12/11/21 - 0.88 07/21/23 - 0.8 & 42.5% 08/26/24 - 0.92 PSA has increased slight from prior but not of concern. Will cont to monitor annually (vs q2yrs) given significant fam hx in father. -PSA in 1 year 2. Prostate asymmetry (N42.89: Other specified disorders of prostate) Per Dr. Hamilton's PE 07/21/23, pt had R-sided prostate swelling. SYLVAIN today: ~45g, no hard nodule, R side larger than L but less pronounced than previously due to prostatic growth. 3. BPH without urinary obstruction (N40.0: Benign prostatic hyperplasia without lower urinary tract symptoms) IPSS 2. UA today negative for blood and infection. Not taking any BPH meds. No bother with urination. 4. Family history of prostate cancer in father (Z80.42: Family history of malignant neoplasm of prostate) Dx'd at 75, passed from metastatic prostate cancer. Follow-up With When Contact Information JONNIE FLORES, Steve Clark, URL [facility] [address], [place] [address]- [phone] Additional Instructions: 1 yr w/ PSA Patient Education Prostate Cancer Screening I, Anayeli Silva, personally scribed for Dr. Cristina on 08/29/2024 09:14:04. . Documentation recorded by the scribe, Anayeli Silva, accurately reflects the services(s) I performed and decisions made by me. Authenticated by Dr. Cristina on 08/29/2024 09:19:12. Problem List/Past Medical History Ongoing BPH without urinary obstruction Family history of prostate cancer in father Hypertriglyceridemia Prostate asymmetry Prostate cancer screening Historical No qualifying data Procedure/Surgical History Colonoscopy, Excision of lesion of ear, Tonsillectomy. Medications No active medications Allergies No Known Medication Allergies Social History Alcohol - Denies Alcohol Use, 01/04/2019 Substance Abuse - Denies Substance Abuse, 01/04/2019 Tobacco Never (less than 100 in lifetime) Tobacco Use:. Never Smokeless Tobacco Use:. Household tobacco concerns: No. Yes, 08/29/2024 Family History Cancer of esophagus: Mother. Hypertension: Father. Primary malignant neoplasm of prostate: Negative: Mother, Father, Sister and Brother. Lab Results Ambulatory Point of Care Results Bilirubin Urine Dipstick: Negative (08/29/24 08:55:00) Blood Urine Dipstick: Negative (08/29/24 08:55:00) Glucose Urine Dipstick: Negative (08/29/24 08:55:00) Ketones Urine Dipstick: Negative (08/29/24 08:55:00) Leukocytes Urine Dipstick: Negative (08/29/24 08:55:00) Nitrite Urine Dipstick: Negative (08/29/24 08:55:00) Protein Urine Dipstick: Trace (08/29/24 08:55:00) Specific [place] Urine Dipstick: 1.025 (08/29/24 08:55:00) Urine Appearance Urine Dipstick: Clear (08/29/24 08:55:00) Urine Color Urine Dipstick: Yellow (08/29/24 08:55:00) Urobilinogen Urine Dipstick: Normal 0.2-1 EU/dl (08/29/24 08:55:00) pH Urine Dipstick: 5.5 (08/29/24 08:55:00) Normal [facility] Comment on above: Result Comment: Elec tronically Signed By: Steve CRISTINA MD\.br\Date and Time Signed: 08/29/24 09:19 EDT\.br\Electronically Co-Signed By: Anayeli Silva\.br\Date and Time Co-Signed: 08/29/24 09:15 EDT No Panel InformationOrdered By: Ev Nath on 12-13-2023 COVID Antigen (POC) [facility] Quick Strep (POC) [facility] LIPID PROFILEon 12-11-2021 CHOL-HDL RATIO NORM SEE BELOW Normal [facility] Comment on above: Result Comment: 3.3 - 4.4 LOW RISK 4.4 - 7.1 AVERAGE RISK 7.1 - 11.0 MODERATE RISK >11.0 HIGH RISK Performed By: #### L IPID #### [facility] [address] [place], [place] [address] Dr. Ruthann Evans Cholesterol [Mass/Vol] 181 mg/dL Normal <=[address] [facility] Comment on above: Performed By: #### L IPID #### [facility] [address] [place], [place] [address] Dr. Ruthann Evans Cholesterol in HDL [Mass/Vol] 33 mg/dL Critically low 40-60 [place] Comment on above: Performed By: #### L IPID #### [facility] [address] [place] [address] [address] Ruthann Evans Cholesterol in LDL [Mass/Vol] 93.2 mg/dL Normal [place] Comment on above: Performed By: #### L IPID #### [facility] [address] [place] [address] [address] Ruthann Evans Cholesterol.total/Nellie sterol in HDL [Mass ratio] 5.5 {ratio} Normal [place] Comment on above: Performed By: #### L IPID #### [facility] [address] [place] [address] Dr. Ruthann Evans HDL NORMAL > or = 60 mg/dl - LOW CARDIOVASCULAR RISK <40 mg/dl - HIGH CARDIOVASCULAR RISK Normal [place] Comment on above: Performed By: #### L IPID #### [facility] [address] [place] [address] Dr. Ruthann Evans LDL CALC NORMAL SEE BELOW Normal [facility] Comment on above: Result Comment: <100 mg/dl OPTIMAL 100 - 129 mg/dl NEAR OR ABOVE OPTIMAL 130 - 159 mg/dl BORDERLINE HIGH 160 - 189 mg/dl HIGH >190 mg/dl VERY HIGH Performed By: #### L IPID #### [facility] [address] [place] [address] Dr. Ruthann Evans Triglyceride [Mass/Vol] 274 mg/dL Critically high <=150 [place] Comment on above: Performed By: #### L IPID #### [facility] [address] [place] [address] Dr. Ruthann Evans VLDL CALC 54.8 mg/dL Normal [place] Comment on above: Performed By: #### L IPID #### [facility] [address] [place], [place] [id number] Dr. Ruthann Evans Vital Signs Date Time Vital Sign Value Performing Clinician Luis F smith 12-13-2023 11:49-0400 Body height 172.72 cm [facility] 12-13-2023 11:49-0400 Body mass index (BMI) [Ratio] 26.9 kg/m2 [facility] 12-13-2023 11:49-0400 Body temperature 97.7 [degF] [facility] 12-13-2023 11:49-0400 Body weight 80.39 kg [facility] 12-13-2023 11:49-0400 Diastolic blood pressure 76 mm[Hg] [facility] 12-13-2023 11:49-0400 Heart rate 65 /min [facility] 12-13-2023 11:49-0400 Respiratory rate 16 /min [facility] 12-13-2023 11:49-0400 SaO2% (BldA) [Mass fraction] 98 % [facility] 12-13-2023 11:49-0400 Systolic blood pressure 140 mm[Hg] [facility] 08-24-2023 09:52-0400 Blood Pressure Location Steve CRISTINA [facility] 08-24-2023 09:52-0400 Diastolic blood pressure 84 mm[Hg] Steve CRISTINA [facility] 08-24-2023 09:52-0400 Heart rate 62 /min Steve CRISTINA [facility] 08-24-2023 09:52-0400 Systolic blood pressure 135 mm[Hg] Steve CRISTINA [facility] Encounters Encounter Date Encounter Type Care Provider Facility Start: 09-01-2025 ambulatory Steve Valentei ty:[facility] Start: 08-25-2025 ambulatory Steve CRISTINA Facili ty:[facility] Start: 08-29-2024 End: 08-29-2024 ambulatory Steve CRISTINA Facility:[facility] Start: 12-13-2023 End: 12-13-2023 ambulatory [facility] Work Phone: Start: 12-13-2023 End: 12-13-2023 Patient encounter procedure [facility] Work Phone: Start: 08-24-2023 End: 08-24-2023 Patient encounter procedure Steve Eduardo CRISTINA [facility] Start: 12-15-2021 Encounter for genera l adult medical examination without abnormal findings DR JEFFY HAMILTON [place] Start: 12-11-2021 End: 12-12-[address] JEFFY HAMILTON Facility:[facility] Start: 12-11-2021 End: 12-12-2021 Encounter for general adult medical examination without abnormal findings DR JEFFY HAMILTON Facility:[facility] Procedures Date Procedure Procedure Detail Performing Clinician Start: 12-13-2023 COVID Antigen (POC) Start: 12-13-2023 Quick Strep (POC) Start: 12-11-[address] SANTO HAMILTON Comment on above: Performed By: #### P [facility] #### [facility] [address] [place] [address] Dr. Ruthann CRISTINA Excision of lesion of ear Pa brenda CRISTINA Tonsillectomy Tseve JONNIE Payers Date Payer Category Payer Unknown [id number] 1965 Unknown [id number] 1965 Unknown [id number] 1965 Unknown [id number] 1965 Unknown [id number] 1957 Unknown [id number] Social History Date Type Detail Facility Start: 08-24-2023 End: 12-13-2023 Tobacco smoking status Never smoked tobacco (finding) [facility] Tobacco smoking status Never [facility] Sex Assigned At Male [facility] Start: 1965 Sex Assigned At Male [facility] Functional Status Date Assessment Result Facility 08-24-2023 Functional Status N/A [facility] Clinical Note 08-29-2024 Note Date & Type Note Facility 08-29-2024 Note Patient Education Oncology Prostate Cancer Screening Prostate [...] recommendations. In general, screening is recommended if: ??? You are age 50 to 70 and [...] have a 10- to 15-year life expectancy. ??? You are younger than age 50, and [...] In general, screening is not recommended if: ??? You are younger than age 40. ??? You are between the ages of 40 and 49 and you have no risk factors. ??? You are 70 years of age or [...] high PSA levels may be caused by: ??? Prostate cancer. ??? An enlarged prostate that is not caused by cancer (benign prostatic hyperplasia, or BPH). This condition is very common in older men. ??? A prostate gland infection (prostatitis) or urinary tract infection. ??? Certain medicines such as male hormones (like [...] you may need more tests, such as: ??? A physical exam to check the size of your prostate gland, if not done as part of screening. ??? Blood and imaging tests. ??? A procedure to remove tissue samples from your prostate gland for testing (biopsy). This is the only way to know for certain if you have prostate cancer. What are the benefits of prostate cancer screening? Screening can help to identify cancer at an early stage, before symptoms start and when the cancer can be treated more easily. ??? There is a small chance that screening [...] Questions to ask your health care provider ??? When should I start prostate cancer screening? What is my risk for prostate cancer? How often do I need screening? What type of screening tests do I need? How do I get my test results? What do my results mean? Do I need treatment? Where to find more information ??? The [place] [employer]: www.cancer.org ??? [place] [employer]: www.auanet.org Contact a health care provider if: ??? You have difficulty urinating. ??? You have pain when you urinate or ejaculate. ??? You have blood in your urine or semen. ??? You have pain in your back or in the area of your prostate. Summary ??? Prostate cancer is a common type of cancer in men. The prostate gland (more content not included)... [facility] Hospital Discharge instructions 08-24-2023 Note Date & [...] treatment? Where to find more information The [place] [employer]: www.cancer.org [place] [employer]: www.auanet.org Contact a health care [...] provider. Document Revised: 10/21/2021 Document Reviewed: 10/21/2021 [employer] Patient Education 2022 [employer]. Follow Up Care 07/30/2023 15:42:42 With:JONNIE FLORES, Steve Clark, URL Address: [facility] [address] [place] [address] [phone] When: Unknown Comments:1 yr w/ PSA, SYLVAIN [facility] Evaluation + Plan note Note Date & Type Note Facility Evaluation + Plan note Future Appointments Appointment Date:08/29/2024 08:45:00 AM Scheduled Provider:Steve CRISTINA MD Location:[facility] Appointment Type:URO Office Visit Diagnostic Tests PendingPSA Total 08/24/23 [facility] Evaluation note Note Date & Type Note Facility Evaluation note Diagnosis Onset Date Viral URI acute Fever noneactive Sore throat noneactive [facility] Work Phone: Hospital course Narrative Note Date & Type Note Facility Hospital course Narrative No data available for this section [facility] Progress note Note Date & Type Note Facility Progress note No data available for this section [facility] Summary Purpose Family History No Family History Records Found Relationship Condition Age at Onset Recorded Date/T griffin father Malignant neoplasm Unknown mother Malignant neoplasm Unknown Advance Directives No Advanced Directives Records Found Advance Directive Response Recorded Date/ Time Advance Directives No December 12 11:45am Chief Complaint and Reason for Visit Chief Complaint cough, congestion Reason for Visit Viral URI Fever Sore throat Additional Source Comments (unrecognized sect ion and content) No Status Records FoundNo Status Records Found INFORMATION SOURCE (unrecogn ized section and content) DATE CREATED AUTHOR 12/15/2021 [facility] DATE CREATED AUTHOR AUTHOR'S ORGANIZ ATION 08/30/2024 [facility] Patient Care team informatio n (unrecognized [...] BE BASED ON THE PRIMARY CLINICAL RECORDS. [facility] [employer] [facility]. provides no warranty or guarantee of the accuracy or completeness of information in this document.
[2024-11-30 11:56] LABS: Hematocrit 45.1 % (42.0-54.0); Hemoglobin 16.2 g/dL (14.0-18.0); Immature Granulocytes Abs Auto 0.03 10^3/uL (0.00-0.03); Immature Granulocytes Pct Auto 0.5 % (0.0-0.5); Lymphocytes Absolute Auto 2.2 10^3/uL (1.2-3.8); Mean Corpuscular HGB Conc 35.9 g/dL (29.9-35.2); Mean Corpuscular Hemoglobin 31.3 pg (25.9-34.0); Mean Corpuscular Volume 87.1 fL (80.0-94.0); Platelet Count 158 10^3/uL (150-450); Red Blood Count 5.18 10^6/uL (4.70-6.10); White Blood Count 6.6 10^3/uL (4.0-11.0)
[2024-11-30 12:44] LABS: Alanine Aminotransferase 66 U/L (16-63); Albumin Globulin Ratio 1.3; Albumin Level 4.0 g/dL (3.4-5.0); Alkaline Phosphatase 81 U/L (46-116); Anion Gap 11.0; Aspartate Amino Transferase 32 U/L (15-37); Blood Urea Nitrogen 16.0 mg/dL (7.0-18.0); Calcium 9.7 mg/dL (8.5-10.1); Carbon Dioxide 31.3 mmol/L (21.0-32.0); Chloride 103 mmol/L (98-107); Cholesterol 186 mg/dL (<=200); Estimated GFR (African America >60 (>=60 mL/min/1.73m^2); Estimated GFR (Non-African Ame >60 (>=60 mL/min/1.73m^2); Free T3 3.28 pg/mL (2.18-3.98); Globulin 3.1 g/dL; Glucose 100 mg/dL (74-106); HDL Cholesterol 45 mg/dL (40-60); Potassium 4.3 mmol/L (3.5-5.1); Sodium 141 mmol/L (136-145); Thyroid Stimulating Hormone 0.776 uIU/mL (0.358-3.740); Total Protein 7.1 g/dL (6.4-8.2); Triglycerides 119 mg/dL (<=150); VLDL CHOLESTEROL 23.8 mg/dL
[2024-12-02 08:09] LABS: PSA, Free 0.46 ng/mL
== END 2024-11-30 11:16 | disposition home or self-care (01) ==
PROVIDERS: PCP Family Medicine; Visit Provider Family Medicine
DX: Z00.00 Encounter for general adult medical examination without abnormal findings (principal); R97.20 Elevated prostate specific antigen [PSA]
CPT/HCPCS: 36415; 80053; 80061; 83036; 84153; 84154; 84436; 84443; 84481; 85025; G0103; G0328